=== PATIENT | female | born 1985 ===

== ENCOUNTER 2017-12-07 13:19 | Emergency (ER) | payer SELFPAY ==
[2017-12-07 13:27] VITALS: TEMP 98.6; O2SAT 97
[2017-12-07] MEDS ORDERED: ONDANSETRON 4 MG/2 ML VIAL IVP ONE (13:44)
[2017-12-07] MEDS ORDERED: NS 1,000 ML IV ONE (13:44)
--- NOTE | 2017-12-07 13:48 | EDPHY ---
H & P Stated Complaint: n/v abd pain/hx gastric bypass/feeding tube/is out of pain meds Time Seen by Provider: 12/07/17 13:32 HPI/ROS: CHIEF COMPLAINT: Abdominal pain nausea vomiting HISTORY OF PRESENT ILLNESS: 32-year-old female status post gastric bypass and J -tube placement in September 2017 in [place] presents to the ER via private vehicle complaining of abdominal pain since last evening. She recently arrived from [place] and is in the [place] temporarily because she would like to get a 2nd opinion about further abdominal surgeries which were recommended to her in [place]. She is complaining of diffuse abdominal pain, nausea, vomiting since last evening. J-tube is patent. Bowel movements and flatus have been normal. No fever no chills. No back or flank pain. No urinary abnormality. PRIMARY CARE PROVIDER: In [place] REVIEW OF SYSTEMS: A ten point review of systems was performed and is negative with the exception of the items mentioned in the HPI PAST MEDICAL & SURGICAL HISTORY: Cholecystectomy. Gastric bypass. J-tube placement. SOCIAL HISTORY:Visiting from [place] PHYSICAL EXAM (Prior to examination, patient consented to physical exam, hands were washed and my usual and customary physical exam procedures followed) 1) GENERAL: Well-developed, well-nourished, alert and oriented. Appears to be in no acute distress. 2) HEAD: Normocephalic, atraumatic 3) HEENT: Pupils equal, round, reactive to light bilaterally. Sclera anicteric. Nasopharynx, oropharynx, clear, no lesions. Dry mucous membranes Ears bilaterally with normal tympanic membranes. 4) NECK: Full range of motion, no meningeal signs. 5) LUNGS: Clear auscultation bilaterally, no wheezes, no rhonchi, no retractions. 6) HEART: Regular rate and rhythm, no murmur, no heave, no gallop. 7) ABDOMEN: J tube in place with no signs of infection, no drainage.. Tender to palpation periumbilical region. No distension. No tympany. No guarding,, negative McBurney's, negative Lozada's, negative Rovsing's, negative peritoneal sign, 8) MUSCULOSKELETAL: Moving all extremities, no focal areas of tenderness, no obvious trauma. No peripheral edema or discoloration. 9) BACK: No CVA tenderness, no midline vertebral tenderness, no fluctuance, no step-off, no obvious trauma, no visual or palpable abnormality. 10) SKIN: No rash, no petechiae. 11) Psychiatric: Patient is oriented X 3, there is no agitation. DIFFERENTIAL DIAGNOSIS: In no particular include but limited to acute on chronic pain, bowel obstruction, acute appendicitis, ectopic - Personal History LMP (Females 10-55): Over 28 Days Ago Current Tetanus/Diphtheria Vaccine: Yes - Medical/Surgical History Hx Asthma: No Hx Chronic Respiratory Disease: No Hx Diabetes: No Hx Cardiac Disease: No Hx Renal Disease: No Hx Cirrhosis: No Hx Alcoholism: No Hx HIV/AIDS: No Hx Splenectomy or Spleen Trauma: No Other PMH: tubal ligation/gastric bypass/feeding tube(in [place]) - Social History Smoking Status: Never smoked Constitutional: Initial Vital Signs Temperature (C) 37 C 12/07/17 13:24 Heart Rate 104 H 12/07/17 13:24 Respiratory Rate 18 12/07/17 13:24 Blood Pressure 114/78 12/07/17 13:24 O2 Sat (%) 97 12/07/17 13:24 O2 Delivery Mode Room Air Allergies/Adverse Reactions: No Known Allergies Allergy (Unverified 12/07/17 13:24) Home Medications: Medication Instructions Recorded Amitriptyline HCl 12/07/17 Hydrocodone/APAP 5/325 [Left Hand 1 tab PO Q6 PRN #15 tab 12/07/17 5/325 (RX)] [facility] 12/07/17 Ondansetron Odt [Zofran Odt] 4 mg PO Q4PRN PRN #15 tab 12/07/17 Medical Decision Making - Diagnostics Imaging Results: Images reviewed by myself ED Course/Re-evaluation: The patient was re-evaluated with serial examinations. Most recent exam at 3: 59 p.m. she is more comfortable. She notes that her nausea and pain have been an ongoing issue ever since her gastric bypass in [place] in September 2017. She has an appointment this Saturday (today is Saturday) with a surgeon in [place], [place]. I recommend she keep this appointment. She has been given copies of her CT scan and diagnostic studies. She is noted to have evidence of epiploic appendagitis no evidence of appendicitis or bowel obstruction on CT scan. Her J-tube is patent. Plan will be discharge with analgesia, antiemetic, usual and customary abdominal precautions instructions. She feels comfortable with this plan. Care of patient under supervision of secondary supervising physician Dr Serrano with whom I discussed case . - Data Points Laboratory Results: Laboratory Results 12/07/17 13:57 12/07/17 13:57 12/07/1718 12/07/17 13:57 13:57 13:57 WBC 4.96 10^3/uL 10^3/uL (3.80-9.50) RBC 5.00 10^6/uL 10^6/uL (4.18-5.33) Hgb 11.1 g/dL L g/dL (12.6-16.3) Hct 35.3 % L % (38.0-47.0) MCV 70.6 fL L fL (81.5-99.8) MCH 22.2 pg L pg (27.9-34.1) MCHC 31.4 g/dL L g/dL (32.4-36.7) RDW 18.6 % H % (11.5-15.2) Plt Count 395 10^3/uL 10^3/uL (150-400) MPV 8.5 fL L fL (8.7-11.7) Neut % (Auto) 76.8 % H % (39.3-74.2) Lymph % (Auto) 19.0 % % (15.0-45.0) [place] % (Auto) 3.2 % L % (4.5-13.0) Eos % (Auto) 0.2 % L % (0.6-7.6) Baso % (Auto) 0.6 % % (0.3-1.7) Nucleat RBC Rel Count 0.0 % % (0.0-0.2) Absolute Neuts (auto) 3.81 10^3/uL 10^3/uL (1.70-6.50) Absolute Lymphs (auto) 0.94 10^3/uL L 10^3/uL (1.00-3.00) Absolute Monos (auto) 0.16 10^3/uL L 10^3/uL (0.30-0.80) Absolute Eos (auto) 0.01 10^3/uL L 10^3/uL (0.03-0.40) Absolute Basos (auto) 0.03 10^3/uL 10^3/uL (0.02-0.10) Absolute Nucleated RBC 0.00 10^3/uL 10^3/uL (0-0.01) Immature Gran % 0.2 % % (0.0-1.1) Immature Gran # 0.01 10^3/uL 10^3/uL (0.00-0.10) Sodium 144 mEq/L mEq/L (135-145) Potassium 4.4 mEq/L mEq/L (3.5-5.2) Chloride 108 mEq/L mEq/L (97-110) Carbon Dioxide 22 mEq/l mEq/l (22-31) Anion Gap 14 mEq/L mEq/L (8-16) BUN 8 mg/dL mg/dL (7-23) Creatinine 0.6 mg/dL mg/dL (0.6-1.0) Estimated GFR > 60 Glucose 106 mg/dL H mg/dL (70-100) Calcium 9.0 mg/dL mg/dL (8.5-10.4) Total Bilirubin 0.5 mg/dL mg/dL (0.1-1.4) Conjugated Bilirubin 0.3 mg/dL mg/dL (0.0-0.5) Unconjugated Bilirubin 0.2 mg/dL mg/dL (0.0-1.1) AST 28 IU/L IU/L (14-46) ALT 37 IU/L IU/L (9-52) Alkaline Phosphatase 123 IU/L IU/L (38-126) Total Protein 7.2 g/dL g/dL (6.3-8.2) Albumin 4.1 g/dL g/dL (3.5-5.0) Lipase 328 IU/L H IU/L (23-300) Beta HCG, Qual NEGATIVE Medications Given: Discontinued Medications Sodium Chloride (Ns) 1,000 mls @ 0 mls/hr IV ONCE ONE PRN Reason: Wide Open Stop: 12/07/17 13:45 Last Admin: 12/07/17 13:56 Dose: 1,000 mls Ketorolac Tromethamine (Toradol) 15 mg IVP EDNOW ONE Stop: 12/07/17 14:54 Last Admin: 12/07/17 14:55 Dose: 15 mg Morphine Sulfate (Morphine) 4 mg IVP EDNOW ONE Stop: 12/07/17 13:45 Last Admin: 12/07/17 13:56 Dose: 4 mg Ondansetron HCl (Zofran) 4 mg IVP EDNOW ONE Stop: 12/07/17 13:45 Last Admin: 12/07/17 13:56 Dose: 4 mg Departure - Departure Disposition: Home, Routine, Self-Care Clinical Impression: Chronic abdominal pain Condition: Good Instructions: Acute Abdominal Pain (ED) Additional Instructions: Seek immediate medical attention if you develop new or worsening symptoms, if you develop fevers, chills, inability to tolerate oral intake or any other symptoms that concerns you. Referrals: Keep, your appointment with your surgeon this Saturday [Other] - As per Instructions Stevenson Ellis MD [Medical Doctor] - Follow Up Only If Needed (Dr. Ellis is a surgeon in [place]) Prescriptions: Hydrocodone/APAP 5/325 [Left Hand 5/325 (RX)] 1 tab PO Q6 PRN #15 tab PRN Reason: Pain, Severe Ondansetron Odt [Zofran Odt] 4 mg PO Q4PRN PRN #15 tab PRN Reason: Nausea
[2017-12-07 14:10] LABS: PLATELET COUNT 395 10^3/uL (150-400)
[2017-12-07] MEDS ORDERED: IOPAMIDOL (ISOVUE-300) 100 ML BTL ONE (14:28)
[2017-12-07] MEDS ORDERED: KETOROLAC 30 MG/1 ML SDV IVP ONE (14:53)
[2017-12-07 16:26] VITALS: BP 105/78; PULSE 76; RESP 18
== END 2017-12-07 16:34 | disposition home or self-care (01) ==
DX: R10.33 Periumbilical pain (principal); R11.10 Vomiting, unspecified; G89.29 Other chronic pain; Z90.49 Acquired absence of other specified parts of digestive tract; Z98.51 Tubal ligation status
CPT/HCPCS: 96374; J1885; J2405; Q9967